=== PATIENT | male | born 1955 | race Caucasian/White ===

== ENCOUNTER → 2016-11-21 | Outpatient (CLI) | payer MEDICAID ==
[~2016-11-21] MED LIST: IBU400 MG PO; MEDROL 4MG. DOSE4 MG PO; SUDAFED PE10 MG PO
--- NOTE | 2016-11-21 11:21 | RADIOLOGY REPORT PS360 ---
UGI SERIES W/ AIR Ordering Physician: Jonny Gonzalez MD Patient Age: 61 years: Male HISTORY: DYSPHAGIA Food gets stuck in throat and sometimes upper chest. This occurs more with dinner and evening meal tight sensation chest 1 minute 40 seconds fluoroscopy time TECHNIQUE: FINDINGS A cervical esophagus appears satisfactory and no aspiration. Generous anterior marginal osteophytes at C-spine to impinge upon cervical esophagus somewhat but do not significantly.. The cricopharyngeus muscle relaxes appropriately. At the thoracic esophagus there is prominent tertiary contractions and presbyesophagus type appearance. These pronounced tertiary contractions are variable but it becomes fairly pronounced at times and impaired to the forward motility of the bolus. At times would see to and fro motion of barium within the esophagus. Minimal GE reflux also observed, along with generous phrenic ampulla. The stomach pylorus and duodenal bulb appear normal. No ulceration or filling defect and there is prompt gastric emptying. IMPRESSION 1. Variable pronounced Tertiary Contractions at at the mid & lower thoracic esophagus.. . When pronounced these ineffective tertiary contractions do yield intermittent impaired motility at the thoracic esophagus. (This picture is somewhat variable, with at other times more functional peristalsis observed) 2. Intermittent To and fro movement of barium within the esophagus; as well as mild GE reflux observed during the course of the study 3. Stomach, pylorus and bulb appear normal 4.At the cervical esophagus generous marginal osteophytes do impinge upon posterior cervical esophagus and could contribute to dysphagia here. Moderate cricopharyngeus muscle seems to relax appropriately
== END ==
LOC: RAD 09:00
DX: R13.10 Dysphagia, unspecified (principal)

== ENCOUNTER → 2016-12-26 | Outpatient (CLI) | payer MEDICAID ==
[2016-12-26 17:58] LABS: HEMOGLOBIN 16.1 g/dL (14.1-18.0); LYMPH # 1.9 K/mm3 (0.7-4.5)
[2016-12-28 09:40] LABS: RA Latex Turbid. <10.0 IU/mL (0.0-13.9)
[2016-12-29 16:36] LABS: Aldolase 2.2 U/L (3.3-10.3)
[2016-12-29 18:40] LABS: Antinuclear Antibodies, IFA Negative (.)
== END ==
LOC: LAB 17:04
PROVIDERS: Internal Medicine Adolescent Medicine
DX: M62.549 Muscle wasting and atrophy, not elsewhere classified, unspecified hand (principal); E11.9 Type 2 diabetes mellitus without complications

== ENCOUNTER 2017-02-10 06:43 | Day surgery (SDC) | payer MEDICAID ==
--- NOTE | 2017-02-10 07:53 | Operative Note ---
Endoscopy Report Date: 02/10/17 Preoperative diagnosis: Dysphagia Procedure Type of procedure: Esophagogastroduodenoscopy with biopsies and dilatation Indications: 61-year-old white male with a long-standing history of what he describes as sinus problems and drainage. Last couple of years she's had symptoms consistent with solid food dysphagia. He states that it often feels as though it "gets time". He's had occasional odynophagia and occasionally had to regurgitate. Couple of years ago he had symptoms which she describes which were consistent with esophageal obstruction secondary to food impaction which persisted for a couple of days and ultimately resolved but the patient drinking warm water. He did not seek medical attention. Patient underwent upper gastrointestinal series which revealed no evidence of any stricture or mass but tertiary contractions with "to and fro movement of barium". Plan was made for upper endoscopy. Consent was obtained and patient was taken to the endoscopy procedure room. He was given 6 mg of Versed and 100 g fentanyl titrated for the duration the procedure. Endoscope was inserted via the oropharynx. Proximal esophagus appeared normal. The gastroesophageal junction there was some prominent mucosa possibly consistent with intestinal metaplasia with mild luminal narrowing. Stomach was cannulated and insufflated. There was significant bile within the stomach which was suctioned free. Retroflexion revealed no evidence of any significant hiatal hernia. Gastric antral mucosal biopsy was obtained for CLOtest for H. pylori. He did have some diffuse moderate gastritis. Pylorus was traversed. Duodenal bulb and duodenal sweep appeared unremarkable. Biopsy was obtained. Gastric biopsy was obtained. Several biopsies were obtained to gastroesophageal junction. Due to mild luminal narrowing with early stricture at the gastroesophageal junction this was dilated sequentially using pneumatic dilator to 20 mm at 6 natalie pressure. Endoscope was withdrawn. Follow-Up Follow-Up: I will start proton pump inhibitors. Treat H. pylori positive. at [id number]
[2017-02-10 10:42] VITALS: BP 123/74
== END 2017-02-10 09:26 | disposition home or self-care (01) ==
LOC: SDC 06:43
PROVIDERS: Surgery
PROC: 0DB78ZX Excision of Stomach, Pylorus, Via Natural or Artificial Opening Endoscopic, Diagnostic (ICD-10-PCS; 2017-02-10)
PROC: 0DB48ZX Excision of Esophagogastric Junction, Via Natural or Artificial Opening Endoscopic, Diagnostic (ICD-10-PCS; 2017-02-10)
PROC: 0D748ZZ Dilation of Esophagogastric Junction, Via Natural or Artificial Opening Endoscopic (ICD-10-PCS; 2017-02-10)
PROC: 0DB98ZX Excision of Duodenum, Via Natural or Artificial Opening Endoscopic, Diagnostic (ICD-10-PCS; principal; 2017-02-10 07:30)
DX: K29.70 Gastritis, unspecified, without bleeding (principal); R13.10 Dysphagia, unspecified; K22.2 Esophageal obstruction
CPT/HCPCS: C1726

== ENCOUNTER → 2017-04-24 | Outpatient (CLI) | payer MEDICAID ==
[2017-04-24 13:57] LABS: BUN 18 mg/dL (7-18)
[2017-04-24 14:00] LABS: GFR (ESTIMATED) 44 ML/MIN (>60)
[2017-04-25 07:37] LABS: Vitamin D, 25-Hydroxy 33.6 ng/mL (30.0-100.0)
== END ==
LOC: LAB 10:01
PROVIDERS: Internal Medicine Adolescent Medicine
DX: G60.9 Hereditary and idiopathic neuropathy, unspecified (principal); E11.9 Type 2 diabetes mellitus without complications; G71.0 Muscular dystrophy